=== PATIENT | male | born 1990 | race African-American/Black ===

== ENCOUNTER 2024-10-21 09:14 | Emergency (ER) | payer OTHER ==
[~2024-10-21] VITALS: Ht 177.8 cm; Wt 80.8 kg
[2024-10-21] MEDS: ACETAMINOPHEN 325 MG TAB PO ONE (09:48)
[2024-10-21 10:30] VITALS: BP 119/73; TEMP 97.8; O2SAT 99
== END 2024-10-21 10:40 | disposition home or self-care (01) ==
LOC: EDBD 09:14 → M ED 09:14
DX: M25.512 Pain in left shoulder (principal)

== ENCOUNTER 2024-11-12 14:59 | Emergency (ER) | payer OTHER ==
[~2024-11-12] VITALS: Ht 167.6 cm; Wt 82.5 kg
[2024-11-12 17:54] VITALS: BP 110/62; TEMP 97.4; O2SAT 100
[2024-11-12] MEDS: KETOROLAC 60MG 2ML VIAL IM ONE (18:15)
[2024-11-12] MEDS ORDERED: METH-1165 PO (20:50)
== END 2024-11-12 21:04 | disposition home or self-care (01) ==
LOC: M ED 14:59
DX: M94.0 Chondrocostal junction syndrome [Tietze] (principal); R07.89 Other chest pain; Z79.899 Other long term (current) drug therapy
CPT/HCPCS: 71111; 96372; 99283; J1885

== ENCOUNTER 2025-02-05 12:11 | Emergency (ER) | payer OTHER ==
[~2025-02-05] VITALS: Ht 170.2 cm; Wt 86.5 kg
[~2025-02-05 12:11] MED LIST: METH-1165 PO
[2025-02-05 12:16] VITALS: BP 131/62; TEMP 97.8; O2SAT 96
[2025-02-05] MEDS ORDERED: OLOP2.5D3 OD (13:17)
[2025-02-05] MEDS ORDERED: ALL10TAB2 PO (13:17)
== END 2025-02-05 13:20 | disposition home or self-care (01) ==
LOC: M ED 12:11
DX: H10.33 Unspecified acute conjunctivitis, bilateral (principal); Z79.899 Other long term (current) drug therapy

== ENCOUNTER 2025-05-20 08:24 | Day surgery (SDC) | payer OTHER ==
[~2025-05-20] VITALS: Ht 170.2 cm; Wt 84.8 kg
[~2025-05-20 08:24] MED LIST changes: +ACET1TAB55 PO; +ALL10TAB2 PO; +CIPR7.5D2 OU; +MELO15TA28 PO; +METH-1164 PO; +OLOP2.5D3 OD; +OMEP40CA5 PO
[2025-05-20] MEDS ORDERED: GLYCOPYRROLATE INJ 0.2 MG/ML 2 ML VIAL As Ordered ONE (09:42)
[2025-05-20] MEDS ORDERED: LIDOCAINE 2% 100 MG/5 ML SDV (FOR ANES.) As Ordered ONE (09:42)
[2025-05-20 10:27] VITALS: BP 113/67; O2SAT 99
== END 2025-05-20 11:52 | disposition home or self-care (01) ==
LOC: M OPP 08:24
PROVIDERS: ATTEND Internal Medicine Gastroenterology
DX: R93.3 Abnormal findings on diagnostic imaging of other parts of digestive tract (principal); R10.13 Epigastric pain; B96.81 Helicobacter pylori [H. pylori] as the cause of diseases classified elsewhere; Z79.899 Other long term (current) drug therapy
CPT/HCPCS: 43239; 88305; J1596

== ENCOUNTER → 2025-06-30 | Outpatient (CLI) | payer OTHER | LOC: M PLAIMG 10:10 | PROVIDERS: ATTEND Chiropractor | DX: M47.22 Other spondylosis with radiculopathy, cervical region (principal); M48.02 Spinal stenosis, cervical region ==